=== PATIENT | male | born 1955 | race American Indian/Alaskan Native ===

== ENCOUNTER 2019-11-27 12:06 | Observation (INO) | payer OTHER ==
[2019-11-27] MEDS ORDERED: SODIUM CHLORIDE 0.9% 1000 ML 1,000 ML IV ONE ×3 (12:29→15:44)
--- NOTE | 2019-11-27 12:32 | Consultation ---
History of Present Illness Consult date: 11/27/19 History of present illness: [facility] Date of Service: 11/27/2019 12:11:31 Impression: Labile BP Right neck/shoulder pain Generalized weakness Right monocular vision blurring Comments/Sign-Out: Symptoms of right monocular vision blurring would not localize to the brain - would be pre-chiasmatic. Suspect a more systemic process at play, perhaps related to his labile BP. Metrics: Last Known Well: 11/27/2019 11:45:00 [facility] Notification Time: 11/27/2019 12:10:53 Arrival Time: 11/27/2019 12:06:00 Stamp Time: 11/27/2019 12:11:31 Time First Login Attempt: 11/27/2019 12:14:00 Video Start Time: 11/27/2019 12:14:00 Symptoms: Right eye vision change NIHSS Start Assessment Time: 11/27/2019 12:22:00 Patient is not a candidate for tPA. Patient was not deemed candidate for tPA thrombolytics because of no focal deficit on exam, low suspicion for stroke. Video End Time: 11/27/2019 12:28:00 CT head showed no acute hemorrhage or acute core infarct. Clinical Presentation is not Suggestive of Large Vessel Occlusive Disease ED Physician notified of diagnostic impression and management plan on 11/27/2019 12:30:00 Our recommendations are outlined below. Recommendations: Gradual normalization of BP Consider MRI brain wo Routine Consultation with Inhouse Neurology for Follow up Care Sign Out: Discussed with Emergency Department Provider History of Present Illness: Patient is a 64 year old Male. Patient was brought by private transportation with symptoms of Right eye vision change Patient with a history of HTN. Last normal at 1145. He went to use the bathroom and had diarrhea. He became very weak and diaphoretic. Weakness was generalized. He also started having pain in the right neck/shoulder. EMS summoned and they noted and SBP in the 240s. On arrival his SBP dropped into the 90s. He had also complained of transient vision blurring in the right eye only. No other focal symptoms. Examination: 1A: Level of Consciousness - Arouses to minor stimulation + 1 1B: Ask Month and Age - Both Questions Right + 0 1C: Blink Eyes & Squeeze Hands - Performs Both Tasks + 0 2: Test Horizontal Extraocular Movements - Normal + 0 3: Test Visual Clarke - No Visual Loss + 0 4: Test Facial Palsy (Use Grimace if Obtunded) - Normal symmetry + 0 5A: Test Left Arm Motor Drift - No Drift for 10 Seconds + 0 5B: Test Right Arm Motor Drift - No Drift for 10 Seconds + 0 6A: Test Left Leg Motor Drift - No Drift for 5 Seconds + 0 6B: Test Right Leg Motor Drift - No Drift for 5 Seconds + 0 7: Test Limb Ataxia (FNF/Heel-Wade) - No Ataxia + 0 8: Test Sensation - Normal; No sensory loss + 0 9: Test Language/Aphasia - Normal; No aphasia + 0 10: Test Dysarthria - Normal + 0 11: Test Extinction/Inattention - No abnormality + 0 NIHSS Score: 1 Patient/Family was informed the Neurology Consult would happen via TeleHealth consult by way of interactive audio and video telecommunications and consented to receiving care in this manner. Due to the immediate potential for life-threatening deterioration due to underlying acute neurologic illness, I spent 35 minutes providing critical care. This time includes time for face to face visit via telemedicine, review of medical records, imaging studies and discussion of findings with providers, the patient and/or family. Dr Buck Moreno [facility] Case [id number] Medications and Allergies Active Meds: Active Medications Sodium Chloride (Nacl 0.9% 1000 Ml) 1,000 mls @ 999 mls/hr IV BOLUS ONE Stop: 11/27/19 13:29
--- NOTE | 2019-11-27 12:38 | Emergency Department Report ---
ED Neuro Deficit HPI - General Stated Complaint: HIGH BLOOD PRESSURE Time Seen by Provider: 11/27/19 12:10 Source: patient, EMS - History of Present Illness Initial Comments: Patient is 64 years old male with history of hypertension. Patient brought to the emergency room via EMS from home for evaluation of sudden onset of gener alized weakness, right eye blurry vision and decreased responsiveness. EMS stated that patient went to the bathroom and had diarrhea and all of a sudden he became diaphoretic with decreased responsiveness and generalized weakness. EMS reported patient initial blood pressure was 240 systolic. Upon arrival to the ER patient is responding to minor stimuli, moving all extremities with no difficulties. Stroke protocol initiated and patient moved to CT for stat CT brain. Neurology consulted through tele-neurology and patient examined by video conference. Upon checking blood pressure in the emergency room his blood pressure is 80/42. Patient started on normal saline. -: Sudden Presenting Symptoms: Present: Blurred/Loss of Vision, Altered Mental Status - Related Data Allergies/Adverse Reactions: Allergies Allergy/AdvReac Type Severity Reaction Status Date / Time No Known Allergies Allergy Unverified 11/27/19 12:37 ED Review of Systems ROS: Stated complaint: HIGH BLOOD PRESSURE Other details as noted in HPI Comment: All other systems reviewed and negative Constitutional: denies: chills, fever Respiratory: denies: cough, shortness of breath, SOB with exertion, SOB at rest, wheezing Cardiovascular: denies: chest pain, palpitations Gastrointestinal: denies: abdominal pain, nausea, vomiting, diarrhea, constipation, hematemesis, melena, hematochezia Musculoskeletal: denies: back pain Neurological: denies: headache, weakness, numbness, paresthesias, confusion, abnormal gait ED Neuro Physical Exam - General General appearance: alert, in no apparent distress, other (Diaphoretic) Suspected Stroke: Yes - Head Head exam: Present: atraumatic, normocephalic, normal inspection - Eye Eye exam: Present: normal appearance - ENT ENT exam: Present: normal exam, normal orophraynx, mucous membranes moist - Neck Neck exam: Present: normal inspection, full ROM. Absent: tenderness, meningismus, lymphadenopathy, thyromegaly - Respiratory Respiratory exam: Present: normal lung sounds bilaterally - Cardiovascular Cardiovascular Exam: Present: regular rate, normal rhythm, normal heart sounds - GI/Abdominal GI/Abdominal exam: Present: soft, normal bowel sounds. Absent: distended, tenderness, guarding, rebound, rigid, organomegaly, mass, bruit, pulsatile mass, hernia - Extremities Exam Extremities exam: Present: normal inspection, full ROM, normal capillary refill. Absent: tenderness, pedal edema, calf tenderness - Back Exam Back exam: Present: normal inspection, full ROM. Absent: CVA tenderness (R), CVA tenderness (L) - Neurological Exam Neurological exam: Present: alert, oriented X3, CN II-XII intact, normal gait, reflexes normal - NIHSS Assessment Interval: Baseline 1a. Level of Consciousness: arousable/minor stimuli 1b. LOC Questions: answers both correctly 1c. LOC Commands: performs tasks correctly 2. Best Gaze: normal 3. Visual: no visual loss 4. Facial Palsy: normal symmetrical movement 5b. Motor Arm Right: no drift 5a. Motor Arm Left: no drift 6a. Motor Leg Left: no drift 6b. Motor Leg Right: no drift 7. Limb Ataxia: absent 8. Sensory: normal 9. Best Language: no aphasia 10. Dysarthria: normal 11. Extinction/Inattention: no abnormality Total Score: 1 Stroke Severity: Minor Stroke - Psychiatric Psychiatric exam: Present: normal mood - Skin Skin exam: Present: warm, intact, normal color ED Course Vital Signs 11/27/19 11/27/19 11/27/19 09:06 12:20 12:27 Temperature Pulse Rate 68 65 Respiratory 16 11 L Rate Blood Pressure 135/75 89/47 89/47 Blood Pressure [Left] O2 Sat by Pulse 96 Oximetry 11/27/19 11/27/19 11/27/19 12:30 12:45 13:00 Temperature Pulse Rate 65 57 L 61 Respiratory 20 15 17 Rate Blood Pressure 89/47 89/55 89/55 Blood Pressure [Left] O2 Sat by Pulse 98 Oximetry 11/27/19 11/27/19 11/27/19 13:02 13:15 13:30 Temperature 97.6 F Pulse Rate 66 63 60 Respiratory 14 12 11 L Rate Blood Pressure 88/54 97/64 Blood Pressure 88/55 [Left] O2 Sat by Pulse 98 98 94 Oximetry 11/27/19 11/27/19 11/27/19 13:45 14:00 14:15 Temperature Pulse Rate 74 59 L 55 L Respiratory 14 12 14 Rate Blood Pressure 97/64 90/54 90/54 Blood Pressure [Left] O2 Sat by Pulse 98 100 99 Oximetry 11/27/19 11/27/19 11/27/19 14:30 14:45 15:00 Temperature Pulse Rate 67 67 69 Respiratory 16 13 16 Rate Blood Pressure 94/55 94/55 93/57 Blood Pressure [Left] O2 Sat by Pulse 99 99 100 Oximetry 11/27/19 11/27/19 15:15 15:30 Temperature Pulse Rate 69 64 Respiratory 14 17 Rate Blood Pressure 93/57 92/50 Blood Pressure [Left] O2 Sat by Pulse 100 100 Oximetry - Lab Data Result diagrams: 11/27/19 12:30 11/27/19 13:59 Lab Results 11/27/19 11/27/19 11/27/19 Range/Units 12:30 12:30 12:30 WBC 4.9 (4.5-11.0) K/mm3 RBC 2.51 L (3.65-5.03) M/mm3 Hgb 7.9 L (11.8-15.2) gm/dl Hct 23.7 L (35.5-45.6) % MCV 94 (84-94) fl MCH 32 (28-32) pg MCHC 34 (32-34) % RDW 13.7 (13.2-15.2) % Plt Count 90 L (140-440) K/mm3 Lymph % (Auto) 19.5 (13.4-35.0) % Coleman % (Auto) 10.3 H (0.0-7.3) % Eos % (Auto) 0.3 (0.0-4.3) % Baso % (Auto) 0.3 (0.0-1.8) % Lymph # 1.0 L (1.2-5.4) K/mm3 Coleman # 0.5 (0.0-0.8) K/mm3 Eos # 0.0 (0.0-0.4) K/mm3 Baso # 0.0 (0.0-0.1) K/mm3 Seg Neutrophils % 69.6 (40.0-70.0) % Seg Neutrophils # 3.4 (1.8-7.7) K/mm3 PT 12.8 (12.2-14.9) Sec. INR 0.95 (0.87-1.13) APTT 23.0 L (24.2-36.6) Sec. Thrombin Time 15.1 (15.1-19.6) Sec. Sodium TNR Potassium TNR Chloride TNR Carbon Dioxide TNR Anion Gap TNR BUN TNR Creatinine TNR Estimated GFR TNR BUN/Creatinine Ratio TNR Glucose TNR POC Glucose (70-105) Lactic Acid (0.7-2.0) mmol/L Calcium TNR Total Creatine Kinase TNR CK-MB (CK-2) TNR CK-MB (CK-2) Rel Index TNR Troponin T TNR 11/27/19 11/27/19 11/27/19 Range/Units 12:35 13:51 13:59 WBC (4.5-11.0) K/mm3 RBC (3.65-5.03) M/mm3 Hgb (11.8-15.2) gm/dl Hct (35.5-45.6) % MCV (84-94) fl MCH (28-32) pg MCHC (32-34) % RDW (13.2-15.2) % Plt Count (140-440) K/mm3 Lymph % (Auto) (13.4-35.0) % Coleman % (Auto) (0.0-7.3) % Eos % (Auto) (0.0-4.3) % Baso % (Auto) (0.0-1.8) % Lymph # (1.2-5.4) K/mm3 Coleman # (0.0-0.8) K/mm3 Eos # (0.0-0.4) K/mm3 Baso # (0.0-0.1) K/mm3 Seg Neutrophils % (40.0-70.0) % Seg Neutrophils # (1.8-7.7) K/mm3 PT (12.2-14.9) Sec. INR (0.87-1.13) APTT (24.2-36.6) Sec. Thrombin Time (15.1-19.6) Sec. Sodium 138 Potassium 3.9 Chloride 103.7 Carbon Dioxide 22 Anion Gap 16 BUN 23 H Creatinine 0.7 L Estimated GFR > 60 BUN/Creatinine Ratio 33 Glucose 183 H POC Glucose 201 H (70-105) Lactic Acid 3.80 H* (0.7-2.0) mmol/L Calcium 8.6 Total Creatine Kinase CK-MB (CK-2) CK-MB (CK-2) Rel Index Troponin T - EKG Data -: EKG Interpreted by Me EKG shows normal: sinus rhythm Rate: normal Interpretation: no acute changes - Radiology Data Radiology results: report reviewed - Medical Decision Making Patient is 64 years old male with history of hypertension. Patient brought to the emergency room via EMS from home for evaluation of sudden onset of generalized weakness, right eye blurry vision and decreased responsiveness. EMS stated that patient went to the bathroom and had diarrhea and all of a sudden he became diaphoretic with decreased responsiveness and generalized weakness. EMS reported patient initial blood pressure was 240 systolic. Upon arrival to the ER patient is responding to minor stimuli, moving all extremities with no difficulties. Stroke protocol initiated and patient moved to CT for stat CT brain. Neurology consulted through tele-neurology and patient examined by video conference. Upon checking blood pressure in the emergency room his blood pressure is 80/42. Patient started on normal saline. Stroke telemetry neurology Dr. Moreno and he stated that this symptom is most likely secondary to hypertension. Patient received 2 L of normal saline with improvement in his blood pressure and his symptoms. I discussed the patient with Dr. Rodriguez, he agreed to admit the patient to medical service for further management. Critical Care Time: Yes Critical care time in (mins) excluding proc time.: 30 Critical care attestation.: If time is entered above; I have spent that time in minutes in the direct care of this critically ill patient, excluding procedure time. ED Disposition Clinical Impression: Hypotension, Altered mental state Disposition: OP ADMIT IP TO THIS HOSP Is pt being admited?: Yes Condition: Stable Referrals: PRIMARY CARE, [Primary Care Provider] - 3-5 Days
--- NOTE | 2019-11-27 12:57 | XRay Report ---
CHEST 1 VIEW 11/27/2019 11:47 AM INDICATION / CLINICAL INFORMATION: stroke. COMPARISON: None available. FINDINGS: SUPPORT DEVICES: None. HEART / MEDIASTINUM: No significant abnormality. LUNGS / PLEURA: No significant pulmonary or pleural abnormality. No pneumothorax. ADDITIONAL FINDINGS: No significant additional findings. IMPRESSION: 1. No acute abnormality of the chest. Signer Name: Volodymyr Melgar MD Signed: 11/27/2019 12:52 PM Workstation Name: [id number]
--- NOTE | 2019-11-27 13:07 | Cat Scan Report ---
CT head/brain wo con INDICATION / CLINICAL INFORMATION: 64 years Male; MAIN. TECHNIQUE: Routine CT head without contrast. All CT scans at this location are performed using CT dos e reduction for ALARA by means of automated exposure control. The reconstructed images are of nondiag nostic quality on this emergent code stroke study. COMPARISON: None. FINDINGS: BRAIN / INTRACRANIAL CONTENTS: The brain appears to demonstrate appropriate attenuation for age. The ventricular system is within normal limits in size and configuration. There is no CT evidence of acut e intracranial hemorrhage or significant mass effect. ORBITS: No significant abnormality of visualized orbits. SINUSES / MASTOIDS: There is mild mucosal thickening with small retention cyst along the visualized i nferior maxillary sinuses. CRANIOCERVICAL JUNCTION: No significant abnormality. ADDITIONAL FINDINGS: None. IMPRESSION: 1. There is no CT evidence of acute intracranial process. The study was specified as code stroke and called emergently to Dr. Greer in the ER at 11:57 AM Jonas tral standard time. Signer Name: Mino Leung MD Signed: 11/27/2019 1:03 PM Workstation Name: [id number]
[2019-11-27 13:11] LABS: Basophils % (Auto) 0.3 % (0.0-1.8); Eosinophils % (Auto) 0.3 % (0.0-4.3); Hematocrit 23.7 % (35.5-45.6); Hemoglobin 7.9 gm/dl (11.8-15.2); Lymphocytes % (Auto) 19.5 % (13.4-35.0); Mean Corpuscular HGB Conc 34 % (32-34); Mean Corpuscular Volume 94 fl (84-94); Monocytes # (Auto) 0.5 K/mm3 (0.0-0.8); Monocytes % (Auto) 10.3 % (0.0-7.3); Red Blood Count 2.51 M/mm3 (3.65-5.03); Red Cell Distribution Width 13.7 % (13.2-15.2)
[2019-11-27 13:14] LABS: Platelet Count 90 K/mm3 (140-440)
[2019-11-27 13:26] LABS: INR 0.95 (0.87-1.13)
[2019-11-27 13:27] LABS: Thrombin Time 15.1 Sec. (15.1-19.6)
[2019-11-27 13:46] LABS: Blood Urea Nitrogen TNR mg/dL (9-20)
[2019-11-27 13:47] LABS: BUN/Creatinine Ratio TNR; Calcium TNR mg/dL (8.4-10.2); Creatine Kinase MB TNR ng/mL (0.0-4.0); Hemolysis Index TNR
[2019-11-27 14:47] LABS: BUN/Creatinine Ratio 33; Blood Urea Nitrogen 23 mg/dL (9-20); Calcium 8.6 mg/dL (8.4-10.2); Hemolysis Index 12
[2019-11-27] MEDS ORDERED: PIPERACILLIN/TAZOBACTAM 3.375 3.375 GM/50 ML BAG IV ONE (16:01)
[2019-11-27 16:16] LABS: Bilirubin,Urine NEG (Negative); Blood,Urine NEG (Negative); Color,Urine Yellow (Yellow); Hyaline Casts,Urine 1 /LPF; Mucus,Urine 2+ /HPF; Protein,Urine <15 mg/dL mg/dL (Negative); Urobilinogen,Urine < 2.0 mg/dL (<2.0)
[2019-11-27 16:27] LABS: Amphetamine Screen,Urine Negative; Benzodiazepines Screen,Urine Negative; Cannabinoid Screen,Urine Negative; Cocaine Screen,Urine Negative; Methadone Screen,Urine Negative; Opiate Screen,Urine Negative
--- NOTE | 2019-11-27 17:48 | Cat Scan Report ---
CT OF THE ABDOMEN AND PELVIS WITH INTRAVENOUS CONTRAST INDICATION / CLINICAL INFORMATION: Abdominal pain. TECHNIQUE: The patient received 100 cc Omnipaque [address] scans at this location are performed using CT dose reduction for ALARA by means of automated exposure control. COMPARISON: None available. FINDINGS: ABDOMEN: The liver, spleen, gallbladder, bile ducts, pancreas, adrenal glands and left kidney are nor mal. There is a 2 to 3 mm nonobstructive calculus in the right mid kidney. I see no evidence of bowel obstruction, wall thickening or free air. No adenopathy is identified. There is mild bibasilar depen dent atelectasis. PELVIS: The prostate gland is mildly enlarged. The distal ureters and urinary bladder are normal. I s ee no evidence of appendicitis or diverticulitis. No abnormal mass or fluid collection is seen. I do not identify a hernia. There is moderate lower lumbar spondylosis. IMPRESSION: 1. No acute intra-abdominal disease is identified. 2. Small nonobstructive right renal calculus. Signer Name: Donny Odell MD Signed: 11/27/2019 5:44 PM Workstation Name: [id number]
--- NOTE | 2019-11-27 23:41 | Progress Note ---
Subjective Date of service: 11/27/19 Objective - Constitutional Vitals: Vital Signs - 12hr 11/27/19 11/27/19 11/27/19 12:20 12:27 12:30 Temperature Pulse Rate 68 65 65 Respiratory 16 11 L 20 Rate Blood Pressure 89/47 89/47 89/47 Blood Pressure [Left] O2 Sat by Pulse 96 Oximetry 11/27/19 11/27/19 11/27/19 12:45 13:00 13:02 Temperature 97.6 F Pulse Rate 57 L 61 66 Respiratory 15 17 14 Rate Blood Pressure 89/55 89/55 Blood Pressure 88/55 [Left] O2 Sat by Pulse 98 98 Oximetry 11/27/19 11/27/19 11/27/19 13:15 13:30 13:45 Temperature Pulse Rate 63 60 74 Respiratory 12 11 L 14 Rate Blood Pressure 88/54 97/64 97/64 Blood Pressure [Left] O2 Sat by Pulse 98 94 98 Oximetry 11/27/19 11/27/19 11/27/19 14:00 14:15 14:30 Temperature Pulse Rate 59 L 55 L 67 Respiratory 12 14 16 Rate Blood Pressure 90/54 90/54 94/55 Blood Pressure [Left] O2 Sat by Pulse 100 99 99 Oximetry 11/27/19 11/27/19 11/27/19 14:45 15:00 15:15 Temperature Pulse Rate 67 69 69 Respiratory 13 16 14 Rate Blood Pressure 94/55 93/57 93/57 Blood Pressure [Left] O2 Sat by Pulse 99 100 100 Oximetry 11/27/19 11/27/19 11/27/19 15:30 15:45 16:03 Temperature Pulse Rate 64 66 69 Respiratory 17 13 13 Rate Blood Pressure 92/50 92/50 Blood Pressure 96/53 [Left] O2 Sat by Pulse 100 99 100 Oximetry 11/27/19 11/27/19 11/27/19 16:15 16:30 16:45 Temperature Pulse Rate 72 67 63 Respiratory 11 L 10 L 8 L Rate Blood Pressure 96/53 105/61 105/61 Blood Pressure [Left] O2 Sat by Pulse 100 100 Oximetry 11/27/19 11/27/19 11/27/19 17:00 17:45 18:00 Temperature Pulse Rate 62 66 77 Respiratory 19 12 12 Rate Blood Pressure 110/66 111/64 109/68 Blood Pressure [Left] O2 Sat by Pulse 98 97 100 Oximetry 11/27/19 11/27/19 11/27/19 18:15 18:31 18:45 Temperature Pulse Rate 72 84 66 Respiratory 11 L 17 15 Rate Blood Pressure 109/68 117/60 109/68 Blood Pressure [Left] O2 Sat by Pulse 100 86 99 Oximetry 11/27/19 11/27/19 11/27/19 19:00 19:15 19:30 Temperature Pulse Rate 67 63 64 Respiratory 10 L 15 14 Rate Blood Pressure 109/63 109/63 119/64 Blood Pressure [Left] O2 Sat by Pulse 100 99 100 Oximetry 11/27/19 11/27/19 11/27/19 19:45 20:00 20:14 Temperature Pulse Rate 69 67 Respiratory 11 L 11 L 11 L Rate Blood Pressure 119/64 120/71 Blood Pressure [Left] O2 Sat by Pulse 99 99 99 Oximetry 11/27/19 11/27/19 11/27/19 20:15 20:30 20:45 Temperature Pulse Rate 67 68 68 Respiratory 13 12 12 Rate Blood Pressure 120/71 118/72 118/72 Blood Pressure [Left] O2 Sat by Pulse 100 100 100 Oximetry 11/27/19 11/27/19 11/27/19 21:00 21:15 21:30 Temperature Pulse Rate 65 68 77 Respiratory 16 16 18 Rate Blood Pressure 113/63 113/63 111/62 Blood Pressure [Left] O2 Sat by Pulse 98 98 99 Oximetry 11/27/19 11/27/19 11/27/19 21:45 22:00 22:15 Temperature Pulse Rate 64 65 68 Respiratory 18 20 14 Rate Blood Pressure 111/62 114/65 114/65 Blood Pressure [Left] O2 Sat by Pulse 98 100 100 Oximetry 11/27/19 11/27/19 22:30 22:45 Temperature Pulse Rate 67 62 Respiratory 15 15 Rate Blood Pressure 115/70 115/70 Blood Pressure [Left] O2 Sat by Pulse 97 100 Oximetry General appearance: Present: no acute distress, well-nourished - EENT Eyes: PERRL, EOM intact ENT: hearing intact, clear oral mucosa Ears: bilateral: normal - Neck Neck: supple, normal ROM - Respiratory Respiratory effort: normal Respiratory: bilateral: CTA - Breasts Breasts: normal - Cardiovascular Rhythm: regular Heart Sounds: Present: S1 & S2. Absent: gallop, rub Extremities: pulses intact, No edema, normal color, Full ROM - Gastrointestinal General gastrointestinal: Present: soft, non-tender, non-distended, normal bowel sounds - Genitourinary Male genitourinary: normal - Integumentary Integumentary: clear, warm, dry - Musculoskeletal Musculoskeletal: 1, strength equal bilaterally - Neurologic Neurologic: moves all extremities - Psychiatric Psychiatric: memory intact, appropriate mood/affect, intact judgment & insight - Labs CBC & Chem 7: 11/27/19 12:30 11/27/19 13:59 Labs: Abnormal lab results 11/27/19 11/27/19 11/27/19 Range/Units 12:30 12:30 12:35 RBC 2.51 L (3.65-5.03) M/mm3 Hgb 7.9 L (11.8-15.2) gm/dl Hct 23.7 L (35.5-45.6) % Plt Count 90 L (140-440) K/mm3 Grainger % (Auto) 10.3 H (0.0-7.3) % Lymph # 1.0 L (1.2-5.4) K/mm3 APTT 23.0 L (24.2-36.6) Sec. BUN (9-20) mg/dL Creatinine (0.8-1.5) mg/dL Glucose (75-100) mg/dL POC Glucose 201 H (70-105) Lactic Acid (0.7-2.0) mmol/L 11/27/19 11/27/19 11/27/19 Range/Units 13:51 13:59 15:13 RBC (3.65-5.03) M/mm3 Hgb (11.8-15.2) gm/dl Hct (35.5-45.6) % Plt Count (140-440) K/mm3 Grainger % (Auto) (0.0-7.3) % Lymph # (1.2-5.4) K/mm3 APTT (24.2-36.6) Sec. BUN 23 H (9-20) mg/dL Creatinine 0.7 L (0.8-1.5) mg/dL Glucose 183 H (75-100) mg/dL POC Glucose (70-105) Lactic Acid 3.80 H* 5.10 H* (0.7-2.0) mmol/L 11/27/19 11/27/19 Range/Units 16:12 19:29 RBC (3.65-5.03) M/mm3 Hgb (11.8-15.2) gm/dl Hct (35.5-45.6) % Plt Count (140-440) K/mm3 Grainger % (Auto) (0.0-7.3) % Lymph # (1.2-5.4) K/mm3 APTT (24.2-36.6) Sec. BUN (9-20) mg/dL Creatinine (0.8-1.5) mg/dL Glucose (75-100) mg/dL POC Glucose (70-105) Lactic Acid 4.90 H* 4.50 H* (0.7-2.0) mmol/L HEART Score - HEART Score Troponin: Troponin T TNR 11/27/19 12:30
[2019-11-27] MEDS ORDERED: ONDANSETRON 4 MG/2 ML INJ IV PRN (23:42)
[2019-11-27] MEDS ORDERED: IBUPROFEN 600 MG TAB PO PRN (23:42)
[2019-11-27] MEDS ORDERED: ACETAMINOPHEN 325 MG TAB PO PRN (23:42)
[2019-11-27] MEDS ORDERED: HYDROmorphone 1 MG/1 ML INJ IV PRN (23:42)
--- NOTE | 2019-11-28 06:00 | History and Physical Report ---
History of Present Illness Date of examination: 11/27/19 Date of admission: 11/27/19 16:12 Chief complaint: Decreased responsiveness of sudden onset 1 hour prior to arrival. History of present illness: 64-year-old male with history of hypertension brought to the emergency room for sudden onset of altered mental status. Patient had generalized weakness right eye blurry vision and decreased responsiveness. Patient went to the bathroom and had a bowel movement which was loose watery and all of a sudden became diaphoretic and decreased responsiveness with generalized weakness. As per EMS patient blood pressure was 240 systolic. In the emergency room patient r esponded to minor stimuli and was moving all extremities with no difficulty. Blood pressure in the emergency room was 80/42. Neuro no focal deficits. Patient stated he was about to pass out. No slurred speech. No weakness in the extremities. No fever or chills. No exposure to coronavirus. Past History Past Medical History: diabetes, hypertension Past Surgical History: Other (Unavailable) Social history: full code Family history: hypertension Medications and Allergies Allergies Allergy/AdvReac Type Severity Reaction Status Date / Time No Known Allergies Allergy Verified 11/27/19 23:48 Home Medications Medication Instructions Recorded Confirmed Last Taken Type Metformin HCl [metFORMIN] 1,000 mg PO BID 11/27/19 11/27/19 Unknown History Pioglitazone [Actos] 45 mg PO QDAY 11/27/19 11/27/19 Unknown History amLODIPine [Norvasc] 5 mg PO DAILY 11/27/19 11/27/19 Unknown History Active Meds: Active Medications Acetaminophen (Tylenol) 650 mg PO Q4H PRN PRN Reason: Pain MILD(1-3)/Fever >100.5/OLVERA Amlodipine Besylate (Amlodipine) 5 mg PO DAILY DESIRE Hydromorphone HCl (Dilaudid) 0.5 mg IV Q3H PRN PRN Reason: Pain , Severe (7-10) Sodium Chloride (Nacl 0.9% 1000 Ml) 1,000 mls @ 100 mls/hr IV DIRECT DESIRE Ibuprofen (Ibuprofen) 600 mg PO Q6H PRN PRN Reason: Pain, Mild (1-3) Insulin Human Lispro (Humalog) 0 unit SUB-Q ACHS DESIRE; Protocol Ondansetron HCl (Zofran) 4 mg IV Q8H PRN PRN Reason: Nausea And Vomiting Sodium Chloride (Sodium Chloride Flush Syringe 10 Ml) 10 ml IV BID DESIRE Sodium Chloride (Sodium Chloride Flush Syringe 10 Ml) 10 ml IV PRN PRN PRN Reason: LINE FLUSH Review of Systems All systems: negative Neurological: change in mentation (Which was transient lasting for about 2 to 3 hours) Psychiatric: anxiety Exam - Constitutional Vitals: Temp Pulse Resp BP Pulse Ox 98 F 68 18 110/68 98 11/28/19 05:10 11/28/19 05:10 11/28/19 02:20 11/28/19 05:10 11/28/19 02:20 General appearance: Present: no acute distress, well-nourished - EENT Eyes: Present: PERRL ENT: hearing intact, clear oral mucosa - Neck Neck: Present: supple, normal ROM - Respiratory Respiratory effort: normal Respiratory: bilateral: CTA - Cardiovascular Heart rate: 86 Rhythm: regular Heart Sounds: Present: S1 & S2. Absent: rub, click - Extremities Extremities: pulses symmetrical, No edema Peripheral Pulses: within normal limits - Abdominal General gastrointestinal: Present: soft, non-tender, non-distended, normal bowel sounds Male genitourinary: Present: normal - Integumentary Integumentary: Present: clear, warm, dry - Musculoskeletal Musculoskeletal: gait normal, strength equal bilaterally - Psychiatric Psychiatric: appropriate mood/affect, intact judgment & insight - Neurologic Neurologic: CNII-XII intact, moves all extremities - Allied Health Allied health notes reviewed: nursing, case management HEART Score - HEART Score Troponin: Troponin T TNR 11/27/19 12:30 Results - Labs CBC & Chem 7: 11/28/19 05:34 11/27/19 13:59 Labs: Laboratory Last Values WBC 4.9 K/mm3 (4.5-11.0) 11/27/19 12:30 RBC 2.51 M/mm3 (3.65-5.03) L 11/27/19 12:30 Hgb 7.9 gm/dl (11.8-15.2) L 11/27/19 12:30 Hct 23.7 % (35.5-45.6) L 11/27/19 12:30 MCV 94 fl (84-94) 11/27/19 12:30 MCH 32 pg (28-32) 11/27/19 12:30 MCHC 34 % (32-34) 11/27/19 12:30 RDW 13.7 % (13.2-15.2) 11/27/19 12:30 Plt Count 90 K/mm3 (140-440) L 11/27/19 12:30 Lymph % (Auto) 19.5 % (13.4-35.0) 11/27/19 12:30 [place] % (Auto) 10.3 % (0.0-7.3) H 11/27/19 12:30 Eos % (Auto) 0.3 % (0.0-4.3) 11/27/19 12:30 Baso % (Auto) 0.3 % (0.0-1.8) 11/27/19 12:30 Lymph # 1.0 K/mm3 (1.2-5.4) L 11/27/19 12:30 [place] # 0.5 K/mm3 (0.0-0.8) 11/27/19 12:30 Eos # 0.0 K/mm3 (0.0-0.4) 11/27/19 12:30 Baso # 0.0 K/mm3 (0.0-0.1) 11/27/19 12:30 Seg Neutrophils % 69.6 % (40.0-70.0) 11/27/19 12:30 Seg Neutrophils # 3.4 K/mm3 (1.8-7.7) 11/27/19 12:30 PT 12.8 Sec. (12.2-14.9) 11/27/19 12:30 INR 0.95 (0.87-1.13) 11/27/19 12:30 APTT 23.0 Sec. (24.2-36.6) L 11/27/19 12:30 Thrombin Time 15.1 Sec. (15.1-19.6) 11/27/19 12:30 Sodium 138 mmol/L (137-145) 11/27/19 13:59 Potassium 3.9 mmol/L (3.6-5.0) 11/27/19 13:59 Chloride 103.7 mmol/L (98-107) 11/27/19 13:59 Carbon Dioxide 22 mmol/L (22-30) 11/27/19 13:59 Anion Gap 16 mmol/L 11/27/19 13:59 BUN 23 mg/dL (9-20) H 11/27/19 13:59 Creatinine 0.7 mg/dL (0.8-1.5) L 11/27/19 13:59 Estimated GFR > 60 ml/min 11/27/19 13:59 BUN/Creatinine Ratio 33 % 11/27/19 13:59 Glucose 183 mg/dL (75-100) H 11/27/19 13:59 POC Glucose 132 (70-105) H 11/28/19 01:46 Lactic Acid 4.50 mmol/L (0.7-2.0) H* 11/27/19 19:29 Calcium 8.6 mg/dL (8.4-10.2) 11/27/19 13:59 Total Creatine Kinase TNR 11/27/19 12:30 CK-MB (CK-2) TNR 11/27/19 12:30 CK-MB (CK-2) Rel Index TNR 11/27/19 12:30 Troponin T TNR 11/27/19 12:30 Urine Color Yellow (Yellow) 11/27/19 Unknown Urine Turbidity Clear (Clear) 11/27/19 Unknown Urine pH 5.0 (5.0-7.0) 11/27/19 Unknown Ur Specific [place] 1.018 (1.003-1.030) 11/27/19 Unknown Urine Protein <15 mg/dl mg/dL (Negative) 11/27/19 Unknown Urine Glucose (UA) >=500 mg/dL (Negative) 11/27/19 Unknown Urine Ketones 20 mg/dL (Negative) 11/27/19 Unknown Urine Blood Neg (Negative) 11/27/19 Unknown Urine Nitrite Neg (Negative) 11/27/19 Unknown Urine Bilirubin Neg (Negative) 11/27/19 Unknown Urine Urobilinogen < 2.0 mg/dL (<2.0) 11/27/19 Unknown Ur Leukocyte Esterase Neg (Negative) 11/27/19 Unknown Urine WBC (Auto) 1.0 /HPF (0.0-6.0) 11/27/19 Unknown Urine RBC (Auto) 1.0 /HPF (0.0-6.0) 11/27/19 Unknown Hyaline Casts 1 /LPF 11/27/19 Unknown Urine Mucus 2+ /HPF 11/27/19 Unknown Urine Opiates Screen Negative 11/27/19 Unknown Urine Methadone Screen Negative 11/27/19 Unknown Ur Barbiturates Screen Negative 11/27/19 Unknown Ur Phencyclidine Scrn Negative 11/27/19 Unknown Ur Amphetamines Screen Negative 11/27/19 Unknown U Benzodiazepines Scrn Negative 11/27/19 Unknown Urine Cocaine Screen Negative 11/27/19 Unknown U Marijuana (THC) Screen Negative 11/27/19 Unknown Drugs of Abuse Note Disclamer 11/27/19 Unknown Short CBC 11/27/19 Range/Units 12:30 WBC 4.9 (4.5-11.0) K/mm3 Hgb 7.9 L (11.8-15.2) gm/dl Hct 23.7 L (35.5-45.6) % Plt Count 90 L (140-440) K/mm3 BMP 11/27/19 11/27/19 12:30 13:59 Sodium TNR 138 Potassium TNR 3.9 Chloride TNR 103.7 Carbon Dioxide TNR 22 BUN TNR 23 H Creatinine TNR 0.7 L Glucose TNR 183 H Calcium TNR 8.6 Cardiac Enzymes 11/27/19 Range/Units 12:30 Total Creatine Kinase TNR CK-MB (CK-2) TNR Troponin T TNR Urine 11/27/19 Range/Units Unknown Urine Color Yellow (Yellow) Urine pH 5.0 (5.0-7.0) Ur Specific [place] 1.018 (1.003-1.030) Urine Protein <15 mg/dl (Negative) mg/dL Urine Glucose (UA) >=500 (Negative) mg/dL Microbiology: Microbiology 11/27/19 16:12 Peripheral/Venous Blood Culture - Preliminary Culture in Progress 11/27/19 16:12 Peripheral/Venous Blood Culture - Preliminary Culture in Progress - Imaging and Cardiology EKG: report reviewed (Sinus rhythm no acute ST-T wave changes) Imaging and Cardiology: Chest x-ray No acute abnormalities of the chest -Head CT There is no CT evidence of acute intracranial process Abdominal CT and pelvis with IV contrast No acute intra-abdominal disease anxiety very small nonobstructive right renal calculus present. [place]/IV: Voiding Method Urinal IV Catheter Type [Left Forearm INT / Saline Lock ] IV Catheter Type [Right INT / Saline Lock Forearm] Assessment and Plan Advance Directives: Yes (Full code) VTE prophylaxis?: Chemical Plan of care discussed with patient/family: Yes - Patient Problems (1) TIA (transient ischemic attack) Current Visit: Yes Status: Acute Plan to address problem: Patient had a transient ischemic attack Transient blurring of more right monocular vision Generalized weakness We will get MRI of the brain and carotid duplex scan/echocardiogram. Echocardiogram to rule out aortic stenosis and for valvular function (2) Hypertension Current Visit: Yes Status: Chronic Qualifiers: Hypertension type: unspecified Qualified Code(s): I10 - Essential (primary) hypertension Plan to address problem: Labile hypertension As per EMS patient blood pressure was in the 240s systolic In the emergency room it was 80/42 Monitor his blood pressure closely and adjust medications (3) Hypotension Current Visit: Yes Status: Acute Qualifiers: Hypotension type: unspecified hypotension type Qualified Code(s): I95.9 - Hypotension, unspecified Plan to address problem: IV fluids for now (4) T2DM (type 2 diabetes mellitus) Current Visit: Yes Status: Chronic Qualifiers: Diabetes mellitus terminologist insulin use: without penitentiary use Plan to address problem: Coverage for now Resume metformin and Actos at discharge (5) Elevated lactic acid level Current Visit: Yes Status: Acute Plan to address problem: No signs of infection Probably secondary to 1 episode of will watery stools and near syncope/TIA We will trend the lactic acid No antibiotics were started (6) DVT prophylaxis Current Visit: Yes Status: Acute Plan to address problem: Heparin 5000 every 12 GI prophylaxis
[2019-11-28 06:08] LABS: Basophils % (Auto) 0.3 % (0.0-1.8); Eosinophils % (Auto) 0.6 % (0.0-4.3); Hematocrit 28.3 % (35.5-45.6); Hemoglobin 9.5 gm/dl (11.8-15.2); Lymphocytes # (Auto) 1.8 K/mm3 (1.2-5.4); Lymphocytes % (Auto) 33.9 % (13.4-35.0); Mean Corpuscular HGB Conc 34 % (32-34); Mean Corpuscular Volume 93 fl (84-94); Monocytes # (Auto) 0.5 K/mm3 (0.0-0.8); Monocytes % (Auto) 9.5 % (0.0-7.3); Platelet Count 146 K/mm3 (140-440); Red Blood Count 3.05 M/mm3 (3.65-5.03)
[2019-11-28 06:33] LABS: Alanine Aminotransferase 14 units/L (7-56); Albumin 3.4 g/dL (3.9-5); BUN/Creatinine Ratio 42; Blood Urea Nitrogen 25 mg/dL (9-20); Calcium 8.5 mg/dL (8.4-10.2); Hemolysis Index 10
[2019-11-28 07:42] LABS: % Iron Saturation 54.88 %
[2019-11-28] MEDS: SODIUM CHLORIDE 0.9% 1000 ML 1,000 ML IV SCH ×2 (07:57→21:26)
[2019-11-28] MEDS: INSULIN LISPRO 100 UNIT/ML SUB-Q SCH ×4 (08:03→23:36)
[2019-11-28] MEDS: amLODIPine 5 MG TAB PO SCH (10:07)
--- NOTE | 2019-11-28 15:43 | Magnetic Resonance Report ---
MR brain wo con INDICATION / CLINICAL INFORMATION: 64 years Male; Syncope/TIA. TECHNIQUE: Multiplanar, multisequence MR images of the brain were obtained. COMPARISON: The study is compared to the previous CT of 11/27/2019. FINDINGS: BRAIN / INTRACRANIAL CONTENTS: The motion degrades image quality despite using a fast acquisition seq uences. However, the brain appears to demonstrate appropriate signal characteristics for age. The dif fusion imaging reveals no evidence of acute infarction. The ventricular system is within normal limit s in size and configuration. No extra-axial fluid collections or significant mass effect is identifie d. CRANIOCERVICAL JUNCTION: No significant abnormality. VASCULAR FLOW-VOIDS: No significant abnormality. ORBITS: No significant abnormality of visualized orbits. SINUSES / MASTOIDS: There is mild mucosal thickening along the inferior maxillary sinuses bilaterally . ADDITIONAL FINDINGS: None. IMPRESSION: 1. The MRI the brain is unremarkable for age without evidence of acute infarction. 2. There are mild inflammatory changes along the inferior maxillary sinuses occluding mucosal thicken ing as well as a 1.7 cm retention cyst on the left. Signer Name: Mino Leung MD Signed: 11/28/2019 3:38 PM Workstation Name: [id number]
--- NOTE | 2019-11-28 16:07 | Progress Note ---
Assessment and Plan - Patient Problems (1) Altered mental state Current Visit: Yes Status: Acute Plan to address problem: Has resolved potentially secondary to CVA. Work-up pending including MRI head carotid Dopplers echocardiogram. (2) Hypotension Current Visit: Yes Status: Acute Qualifiers: Hypotension type: unspecified hypotension type Qualified Code(s): I95.9 - Hypotension, unspecified (3) TIA (transient ischemic attack) Current Visit: Yes Status: Acute Plan to address problem: Stroke work-up including MRI carotid ultrasound echocardiogram. Syncope evaluation. (4) Hypertension Current Visit: Yes Status: Chronic Qualifiers: Hypertension type: unspecified Qualified Code(s): I10 - Essential (primary) hypertension Plan to address problem: Patient currently normotensive. Only on amlodipine 5 mg. Potentially could have been hypotension as well. (5) T2DM (type 2 diabetes mellitus) Current Visit: Yes Status: Chronic Qualifiers: Diabetes mellitus asset card clerk insulin use: without custodial use Plan to address problem: Resume previous home medications for diabetes and titrate accordingly. Subjective Date of service: 11/28/19 Principal diagnosis: Syncope Interval history: Patient is a 64-year-old with a history of hypertension presented with altered mental status consisting of weakness blurry vision decreased responsiveness. Patient presented to the ED initially with hypertensive and then hypotensive at 80/42. Patient was evaluated for potential TIA versus CVA. At present patient is alert oriented x3 no dizziness no weakness no chest pain no fever chills no shortness of breath no recent sick contacts no diarrhea no constipation. Await MRI in a.m. rule out CVA. Objective - Constitutional Vitals: Vital Signs - 12hr 11/28/19 11/28/19 11/28/19 05:10 07:14 08:22 Temperature 98 F 99.0 F Pulse Rate 68 82 Pulse Rate [ 62 Apical] Respiratory 18 18 Rate Blood Pressure 117/72 Blood Pressure 110/68 [Left] O2 Sat by Pulse 98 98 Oximetry 11/28/19 11/28/19 09:00 12:31 Temperature 98.7 F Pulse Rate 80 97 H Pulse Rate [ Apical] Respiratory 18 Rate Blood Pressure 123/68 Blood Pressure [Left] O2 Sat by Pulse 100 Oximetry General appearance: Present: no acute distress, well-nourished - EENT Eyes: PERRL, EOM intact ENT: hearing intact, clear oral mucosa Ears: bilateral: normal - Neck Neck: supple, normal ROM - Respiratory Respiratory effort: normal Respiratory: bilateral: CTA - Breasts Breasts: normal - Cardiovascular Rhythm: regular Heart Sounds: Present: S1 & S2. Absent: gallop, rub Extremities: pulses intact, No edema, normal color, Full ROM - Gastrointestinal General gastrointestinal: Present: soft, non-tender, non-distended, normal bowel sounds - Genitourinary Male genitourinary: normal - Integumentary Integumentary: clear, warm, dry - Musculoskeletal Musculoskeletal: 1, strength equal bilaterally - Neurologic Neurologic: moves all extremities - Psychiatric Psychiatric: memory intact, appropriate mood/affect, intact judgment & insight - Labs CBC & Chem 7: 11/28/19 05:34 11/28/19 05:34 Labs: Abnormal lab results 11/27/19 11/27/19 11/28/19 Range/Units 16:12 19:29 01:46 RBC (3.65-5.03) M/mm3 Hgb (11.8-15.2) gm/dl Hct (35.5-45.6) % [place] % (Auto) (0.0-7.3) % BUN (9-20) mg/dL Creatinine (0.8-1.5) mg/dL Glucose (75-100) mg/dL POC Glucose 132 H (70-105) Hemoglobin A1c (4-6) % Lactic Acid 4.90 H* 4.50 H* (0.7-2.0) mmol/L TIBC (250-450) mcg/dL Total Protein (6.3-8.2) g/dL Albumin (3.9-5) g/dL Vitamin B12 (211-911) pg/mL 11/28/19 11/28/19 11/28/19 Range/Units 05:34 05:34 05:34 RBC 3.05 L (3.65-5.03) M/mm3 Hgb 9.5 L (11.8-15.2) gm/dl Hct 28.3 L (35.5-45.6) % [place] % (Auto) 9.5 H (0.0-7.3) % BUN 25 H (9-20) mg/dL Creatinine 0.6 L (0.8-1.5) mg/dL Glucose 225 H (75-100) mg/dL POC Glucose (70-105) Hemoglobin A1c 11.0 H (4-6) % Lactic Acid (0.7-2.0) mmol/L TIBC (250-450) mcg/dL Total Protein 5.7 L (6.3-8.2) g/dL Albumin 3.4 L (3.9-5) g/dL Vitamin B12 (211-911) pg/mL 11/28/19 11/28/19 11/28/19 Range/Units 07:05 07:05 08:55 RBC (3.65-5.03) M/mm3 Hgb (11.8-15.2) gm/dl Hct (35.5-45.6) % [place] % (Auto) (0.0-7.3) % BUN (9-20) mg/dL Creatinine (0.8-1.5) mg/dL Glucose (75-100) mg/dL POC Glucose 227 H (70-105) Hemoglobin A1c (4-6) % Lactic Acid (0.7-2.0) mmol/L TIBC 215 L (250-450) mcg/dL Total Protein (6.3-8.2) g/dL Albumin (3.9-5) g/dL Vitamin B12 < 150 L (211-911) pg/mL 11/28/19 Range/Units 12:01 RBC (3.65-5.03) M/mm3 Hgb (11.8-15.2) gm/dl Hct (35.5-45.6) % [place] % (Auto) (0.0-7.3) % BUN (9-20) mg/dL Creatinine (0.8-1.5) mg/dL Glucose (75-100) mg/dL POC Glucose 172 H (70-105) Hemoglobin A1c (4-6) % Lactic Acid (0.7-2.0) mmol/L TIBC (250-450) mcg/dL Total Protein (6.3-8.2) g/dL Albumin (3.9-5) g/dL Vitamin B12 (211-911) pg/mL HEART Score - HEART Score Troponin: Troponin T TNR 11/27/19 12:30
[2019-11-28] MEDS: metFORMIN 500 MG TAB PO SCH ×2 (17:12→17:14)
[2019-11-29] MEDS: metFORMIN 500 MG TAB PO SCH ×2 (08:00→17:28)
[2019-11-29] MEDS: INSULIN LISPRO 100 UNIT/ML SUB-Q SCH ×3 (08:28→17:32)
[2019-11-29] MEDS: amLODIPine 5 MG TAB PO SCH (09:04)
[2019-11-29] MEDS: SODIUM CHLORIDE 0.9% 1000 ML 1,000 ML IV SCH (09:06)
--- NOTE | 2019-11-29 12:02 | Vascular Lab Report ---
"DUPLEX DOPPLER ULTRASOUND CAROTID, BILATERAL INDICATION: Syncope. FINDINGS: RIGHT CAROTID: Mild atherosclerotic plaque. Right CCA velocity: 169 cm/sec. Right ICA peak systolic velocity: 96 cm/sec. ICA/CCA PSV Ratio: 0.9. Right Vertebral Artery: Antegrade flow. LEFT CAROTID: Mild atherosclerotic plaque. Left CCA velocity: 160 cm/sec. Left ICA peak systolic velocity: 93 cm/sec. ICA/CCA PSV Ratio: 0.8. Left Vertebral Artery: Antegrade flow. IMPRESSION: 1. Right Internal Carotid Artery: Less than 50% diameter stenosis. 2. Left Internal Carotid Artery: Less than 50% diameter stenosis. Velocity criteria are extrapolated from diameter data as defined by the Society of Radiologists in Ul trasound Consensus Conference, Radiology 2003; 229;340-346. Degree of Stenosis (%) || ICA PSV (cm/sec) || Plaque estimate (%) || ICA/CCA PSV Ratio Normal <125 None <2.0 <50 <125 <50 <2.0 50-69 125-230 50 2.0-4.0 70 but less than 100 >230 50 >4.0 Near occlusion High, low, or none visible variable Total occlusion None visible; no lumen N/A Signer Name: Rasheed Gooden MD Signed: 11/29/2019 11:58 AM Workstation Name: [id number]"
--- NOTE | 2019-11-29 16:06 | Discharge Summary ---
Providers - Providers Date of Admission: 11/27/19 16:12 Date of discharge: 11/29/19 Attending physician: FIDELINA ESPINOSA None Primary care physician: ACID MIXER Hospitalization Condition: Good Pertinent studies: MRI unremarkable. Echocardiogram ejection fraction 55 [address] abdomen showed non-obstructive stone. Hospital course: 64-year-old came in near syncopal episode dizziness significant enough to be worked up for stroke. Patient underwent stroke work-up echocardiogram unremarkable CT head unremarkable MRI unremarkable. Patient symptom resolved almost immediately when he presented to the hospital. Blood pressure remained optimal control and stable. On home medications. Patient stable for discharge follow-up with cardiology primary care physician in 2 weeks. Disposition: - TO HOME OR SELFCARE - Discharge Diagnoses (1) Altered mental state Status: Acute Comment: Secondary to episode of hypotension. (2) Hypotension Status: Acute Qualifiers: Hypotension type: unspecified hypotension type Qualified Code(s): I95.9 - Hypotension, unspecified Comment: Resolved. Resume previous meds. (3) TIA (transient ischemic attack) Status: Acute Comment: Unlikely TIA. Patient did not have stroke. (4) Hypertension Status: Chronic Qualifiers: Hypertension type: unspecified Qualified Code(s): I10 - Essential (primary) hypertension Comment: Fair control. Continue antihypertensives home. (5) T2DM (type 2 diabetes mellitus) Status: Chronic Qualifiers: Diabetes mellitus tank terminal gauger insulin use: without tank terminal gauger use Comment: Resume metformin and Actos. Did not appear to be hypoglycemia as well. Core Measure Documentation - Palliative Care Palliative Care/ Comfort Measures: Not Applicable - Core Measures Any of the following diagnoses?: none Exam - Constitutional Vitals: Temp Pulse Resp BP Pulse Ox 98.8 F 63 18 107/67 99 11/29/19 12:01 11/29/19 12:01 11/29/19 12:01 11/29/19 12:01 11/29/19 12:01 General appearance: Present: no acute distress, well-nourished - EENT Eyes: Present: PERRL ENT: hearing intact, clear oral mucosa - Neck Neck: Present: supple, normal ROM - Respiratory Respiratory effort: normal Respiratory: bilateral: CTA - Cardiovascular Heart Sounds: Present: S1 & S2. Absent: rub, click - Extremities Extremities: pulses symmetrical, No edema Peripheral Pulses: within normal limits - Abdominal General gastrointestinal: Present: soft, non-tender, non-distended, normal bowel sounds Male genitourinary: Present: normal - Integumentary Integumentary: Present: clear, warm, dry - Musculoskeletal Musculoskeletal: gait normal, strength equal bilaterally - Psychiatric Psychiatric: appropriate mood/affect, intact judgment & insight - Neurologic Neurologic: CNII-XII intact, moves all extremities Plan Activity: no restrictions Weight Bearing Status: Full Weight Bearing Diet: diabetic Follow up with: PRIMARY CARE, [Primary Care Provider] - 3-5 Days
[2019-11-29 18:31] VITALS: BP 104/64
== END 2019-11-29 19:45 | disposition home or self-care (01) ==
LOC: ED 12:06 → INTOOBSV 16:12 → 3A 16:12 → 4A 22:29
PROVIDERS: ADMIT Internal Medicine; ATTEND Internal Medicine
DX: R41.82 Altered mental status, unspecified (principal); I95.9 Hypotension, unspecified; G45.9 Transient cerebral ischemic attack, unspecified; I10 Essential (primary) hypertension; E11.9 Type 2 diabetes mellitus without complications; R79.89 Other specified abnormal findings of blood chemistry; Z79.84 Long term (current) use of oral hypoglycemic drugs; Z79.899 Other long term (current) drug therapy
CPT/HCPCS: 36415; 70450; 70551; 71045; 74177; 80048; 80053; 80307; 81001; 82140; 82607; 82747; 82962; 83036; 83550; 85025; 85610; 85670; 85730; 87040; 87641; 93005; 93306; 93880; 96361; 96365; 96372; 99291; G0378; J2543; J7030; Q9967; J1815